=== PATIENT | male | born 1965 | race Caucasian/White ===

== ENCOUNTER 2021-01-28 20:07 | Emergency (ER) | payer MEDICAID ==
[~2021-01-28] VITALS: Ht 167.6 cm; Wt 86.2 kg
[2021-01-28 20:20] VITALS: BP 134/72
[2021-01-28] MEDS ORDERED: ACETAMINOPHEN EXTRA STRENGTH 500 MG TAB PO ONE (20:20)
--- NOTE | 2021-01-28 20:24 | NUR ---
TO ED bed 01
--- NOTE | 2021-01-28 20:35 | NUR ---
PT BIB SELF FOR C/O CHEST PRESSURE THAT BEGAN MONDAY 01/15. PT DENIES PAIN OR RADIATING DISCOMFORT. PT STATES SHE JUST WANTED TO COME IN AND MAKE SURE IT WAS NOTHING SERIOUS. DENIES N/V/D, FEVER, CHILLS, SOB. NO NOTED RESPIRATORY DISTRESS OR WEAKNESS. AMBULATORY. A & O X4. MED HX: HTN, HYPERTHYROID, ELEVATED CHOLESTEROL, VIT D DEF. ALLERGIES: NKA
--- NOTE | 2021-01-28 20:40 | NUR ---
DAVID COLLECTED AND WALKED TO LAB, HAND GIVEN TO TECH. IBRAHIMA
--- NOTE | 2021-01-28 20:51 | NUR ---
Patient being evaluated by physician at bedside.
--- NOTE | 2021-01-28 21:16 | NUR ---
TEMP. RECHECK 101.0
--- NOTE | 2021-01-28 21:28 | NUR ---
FLU SWAB COLLECTED AND HAND GIVEN TO TECH. IBRAHIMA
[2021-01-28] MEDS ORDERED: ONDA-24 SL (21:58)
[2021-01-28 22:13] VITALS: BP 114/65
== END 2021-01-28 22:13 | disposition home or self-care (01) ==
LOC: MED 20:07
DX: R50.9 Fever, unspecified (principal); Z20.822 Contact with and (suspected) exposure to COVID-19; R11.2 Nausea with vomiting, unspecified; M79.10 Myalgia, unspecified site; Z79.899 Other long term (current) drug therapy
CPT/HCPCS: 87804; 99283